=== PATIENT | male | born 1970 | race Hispanic/Latino ===

== ENCOUNTER 2021-08-02 13:59 | Emergency (ER) | payer OTHER, SELFPAY ==
[2021-08-02 14:04] VITALS: BP 182/103; PULSE 82; RESP 18; TEMP 36.6; O2SAT 99
[2021-08-02 14:22] LABS: Basophils Percent Auto 0.5 % (0.2-1.2); Eosinophils Absolute Auto 0.2 K/mm3 (0-0.3); Eosinophils Percent Auto 2.7 % (0-4.4); Hematocrit 44.1 % (42.0-52.0); Hemoglobin 15.3 g/dL (14.0-18.0); Immature Granulocyte Absolute 0.01 K/mm3 (0.00-0.031); Immature Granulocyte Percent A 0.1 % (0-0.5); Lymphocytes Absolute Auto 2.58 K/mm3 (0.9-3.2); Lymphocytes Percent Auto 33.6 % (18.3-44.2); Mean Corpuscular HGB Conc 34.7 g/dl (32-36); Mean Platelet Volume 10.4 fl (7.4-10.4); Monocytes Absolute Auto 0.8 K/mm3 (0.1-0.6); Monocytes Percent Auto 10.3 % (2.6-8.5); Neutrophils Absolute Auto 4.1 K/mm3 (1.3-6.7); Neutrophils Percent Auto 52.8 % (45.5-73.1); Platelet Count Result 231 k/mm3 (150-375); Red Blood Count 4.64 M/mm3 (4.6-6.20); Red Cell Distribution Width 12.8 % (11.5-14.5); White Blood Count 7.7 K/mm3 (4.5-10.0)
[2021-08-02 14:29] LABS: INR 1.1; Partial Thromboplastin Time 26.8 SECONDS (22.3-36.8); Prothrombin Time 13.7 Seconds (11.1-14.7)
[2021-08-02 14:31] LABS: Alanine Aminotransferase 80 U/L (4-50); Albumin Level 4.5 g/dL (3.5-5.1); Alkaline Phosphatase 76 U/L (38-126); Anion Gap 10 mmol/L (8-16); Aspartate Amino Transferase 46 U/L (17-59); Bilirubin,Total 0.3 mg/dL (0.2-1.3); Blood Urea Nitrogen 14 mg/dL (9-20); Calcium 8.9 mg/dL (8.4-10.2); Carbon Dioxide 25 mmol/L (22-30); Chloride 103 mmol/L (98-107); Estimated CRCL calculation 121 ml/min; Estimated Glomerular Filt Rate > 60; Glucose 143 mg/dL (65-110); Potassium 3.8 mmol/L (3.4-5.0); Sodium 138 mmol/L (137-145)
--- NOTE | 2021-08-02 15:35 | ED.GENADULT ---
HPI - General Adult General Chief complaint: GI Bleed Stated complaint: BLOOD IN STOOL Time Seen by Provider: 08/02/21 14:38 Source: patient Mode of arrival: ambulatory Limitations: no limitations History of Present Illness HPI narrative: Patient is a 51-year-old male with chief complaint of 2 episodes of stool with flecks of bright red blood in it. Patient reports that he was in [place] last week and did eat and drink lots of various things. Patient denies abdominal pain, nausea, vomiting or fever. He reports that he does feel more gassy. Patient denies any allergies to antibiotics. Patient denies history of diverticulitis. He states that he is due for colonoscopy. He states that he does not presently have a GI doctor. Patient denies any rectal pain or difficulty passing stools. Patient denies copious amounts of blood from his rectum. Patient denies weakness, dizziness, shortness of breath, chest pain. Review of Systems Review of Systems: CONSTITUTIONAL: Denies fever, chills, or sweats. EYES: Denies visual changes, redness, or discharge. ENT: Denies rhinorrhea, congestion, sore throat, or otalgia. CARDIOVASCULAR: Denies chest pain, palpitations, or edema. RESPIRATORY: Denies cough or dyspnea. GASTROINTESTINAL: Reports blood in stool denies abdominal pain, nausea, vomiting, or diarrhea. GENITOURINARY: Denies dysuria or hematuria. SKIN: Denies rash or itching. MUSCULOSKELETAL: Denies back pain, joint pain, or myalgia. NEUROLOGIC: Denies headache, numbness, dizziness, or weakness. PSYCHIATRIC: Denies anxiety or depression. Exam Narrative: GENERAL: Well-appearing, well-nourished, and in no acute distress. Patient smiling and talking normally. Patient is not in discomfort. HEAD: Normocephalic, atraumatic. EYES: PERRLA and EOMI. CHEST: Clear to auscultation. No respiratory distress. No wheezes rales or rhonchi HEART: Regular rate and rhythm. ABDOMEN: Soft, nontender palpation, nondistended, active bowel sounds, some gas noted. RECTAL: No gross blood noted. No large hemorrhoids seen. Hemoccult positive. EXTREMITIES: Normal range of motion. No edema. SKIN: Warm, dry, no rash. NEURO: No focal deficits. Alert and oriented x3. PSYCH: Normal mood and affect. Course Vital Signs Vital signs: Vital Signs Temperature 97.9 F 08/02/21 14:04 Pulse Rate 82 08/02/21 14:04 Respiratory Rate 18 08/02/21 14:04 Blood Pressure 182/103 H 08/02/21 14:04 Pulse Oximetry 99 08/02/21 14:04 Temperature 97.9 F 08/02/21 14:04 Pulse Rate 74 08/02/21 15:40 Respiratory Rate 18 08/02/21 15:40 Blood Pressure 163/100 H 08/02/21 15:40 Pulse Oximetry 99 08/02/21 15:40 Medical Decision Making MDM Narrative Medical decision making narrative: Patient's initial blood pressure was elevated so the have the nurse recheck. Patient does not have abdominal pain, nausea, vomiting, fever or sign of sepsis. Patient is not having persistent diarrhea, Will forego starting abx as no sign of infection presently- no fever, pain or elevated WBC. Patient has had 2-3 stools in the past week that he has noted some bright blood mixed in. The patient's hemoglobin and hematocrit are stable at 15.3 and 44.1%. Patient not hypotensive, hypoxic or having any chest pain. Patient has been instructed to follow-up with GI specialist for colonoscopy and his primary care. Patient has been instructed to return to emergency department immediately if he has any worsening or emergent symptoms including but not limited to profuse rectal bleeding, abdominal pain, fever, chills or persistent diarrhea. Differential Diagnosis Differential Diagnosis: Gastroenteritis, diverticulitis, traveler's diarrhea, bowel obstruction, hemorrhoid Vital Signs Vital Signs: Vital Signs Temperature 97.9 F 08/02/21 14:04 Pulse Rate 82 08/02/21 14:04 Respiratory Rate 18 08/02/21 14:04 Blood Pressure 182/103 H 08/02/21 14:04 Pulse Oximetry 99 08/02/21 14:04 Temperatur
[2021-08-02 15:40] VITALS: BP 163/100; PULSE 74; RESP 18; O2SAT 99
== END 2021-08-02 15:59 | disposition home or self-care (01) ==
PROVIDERS: Emergency Provider Emergency Medicine; PCP Registered Nurse
DX: K92.1 Melena (principal)
CPT/HCPCS: 36415; 80053; 85025; 85610; 85730; 86850; 86900; 86901; 99283